=== PATIENT | female | born 1995 | race Caucasian/White ===

== ENCOUNTER 2023-09-13 19:59 | Inpatient (IN) | payer BC ==
[2023-09-13] MEDS ORDERED: Labetalol 100 MG/20 ML MDV ONE (21:50)
[2023-09-13] MEDS ORDERED: Magnesium Sulfate/Water 6 GM in Premix Bag 1 BAG IV SCH (22:00)
[2023-09-13] MEDS: Labetalol 100 MG/20 ML MDV IVPUSH ONE (22:04)
[2023-09-13] MEDS ORDERED: Calcium Gluconate 10% 1 GM/10 ML SDV IV PRN ×2 (22:14→23:05)
[2023-09-13] MEDS ORDERED: Sodium Chloride 0.9% 20 ML SDV IV PRN ×2 (22:14→23:05)
[2023-09-13] MEDS ORDERED: Sodium Chloride 0.9% 2.5 ML Syringe FLUSH PRN ×2 (22:14→23:05)
[2023-09-13] MEDS ORDERED: Sodium Chloride 0.9% 10 ML Syringe FLUSH PRN ×2 (22:14→23:05)
[2023-09-13] MEDS: Magnesium Sulfate/Water 6 GM in Premix Bag 1 BAG IV ONE (22:27)
[2023-09-13 22:29] LABS: HEMATOCRIT 39.7 % (37.0-47.0); HEMOGLOBIN 13.5 g/dL (12.0-16.0); MEAN CORPUSCULAR HEMOGLOBIN 30.6 pg (28.0-32.0); PLATELET COUNT,PLT 191 K/uL (150-400); RED BLOOD CELL COUNT 4.41 M/uL (4.10-5.30); WHITE BLOOD CELL COUNT,WBC 15.67 K/uL (3.9-11.3)
[2023-09-13] MEDS ORDERED: Terbutaline 1 MG/ML SDV SUBCUT PRN (22:31)
[2023-09-13] MEDS ORDERED: Misoprostol 25 MCG (1/4 of 100 MCG) Tab VAG PRN (22:31)
[2023-09-13] MEDS: Misoprostol 25 MCG (1/4 of 100 MCG) Tab VAG PRN (22:56)
[2023-09-13 22:59] LABS: A/G RATIO 0.6 (0.9-1.6); ALANINE AMINOTRANSFERASE,ALT 19 IU/L (14-63); ALBUMIN 2.6 g/dL (3.4-5.0); ALKALINE PHOSPHATASE 116 U/L (46-116); ASPARTATE AMNIOTRANSFERASE,AST 18 IU/L (15-37); BILIRUBIN TOTAL 0.2 mg/dL (0.2-1.0); BLOOD UREA NITROGEN,BUN 8 mg/dL (7.0-18.0); CARBON DIOXIDE,CO2 24.4 mmol/L (21.0-32.0); CHLORIDE,CL 102 mmol/L (98-107); CREATININE 0.5 mg/dL (0.6-1.0); ESTIMATED GFR 130 mL/min (>60); GLUCOSE RANDOM 84 mg/dL (74-106); MAGNESIUM 1.4 mg/dL (1.8-2.4); POTASSIUM,K 3.6 mmol/L (3.5-5.1); PROTEIN TOTAL,TP 7.1 g/dL (6.4-8.2); SODIUM,NA 138 mmol/L (136-145); URIC ACID 4.3 mg/dL (2.6-7.2)
[2023-09-13] MEDS ORDERED: Methylergonovine 0.2 MG/1 ML Amp IM PRN (23:05)
[2023-09-13] MEDS ORDERED: Butorphanol 2 MG/ML SDV IVPUSH PRN (23:05)
[2023-09-13] MEDS ORDERED: Tranexamic Acid IN NACL,ISO-OS 1,000 MG in Premix Bag 1 BAG IV PRN (23:05)
[2023-09-13] MEDS ORDERED: Carboprost Tromethamine 250 MCG/1 mL Vial IM PRN (23:05)
[2023-09-13] MEDS ORDERED: Water For Irrigation,Sterile 1,000 ML Container IRR PRN (23:05)
[2023-09-13] MEDS ORDERED: Misoprostol 200 MCG Tab PO PRN (23:05)
[2023-09-13] MEDS ORDERED: Lidocaine 1% 50 ML MDV INJECT PRN (23:05)
[2023-09-13] MEDS ORDERED: Magnesium Sulfate/Water 20 GM/500 ML BAG IV SCH (23:15)
[2023-09-13] MEDS ORDERED: Oxytocin/0.9 % Sodium Chloride 30 UNIT/500 ML BAG IV SCH (23:15)
[2023-09-14] MEDS: Labetalol 100 MG/20 ML MDV IVPUSH ONE (01:31)
[2023-09-14] MEDS: Ondansetron 4 MG/2 ML SDV IVPUSH PRN (02:13)
[2023-09-14] MEDS: Oxytocin/0.9 % Sodium Chloride 30 UNIT/500 ML BAG IV SCH (04:15)
[2023-09-14] MEDS ORDERED: ePHEDrine 50 MG/ML SDV IVPUSH PRN ×2 (07:53)
[2023-09-14 08:23] LABS: APPEARANCE,URINE CLEAR; BILIRUBIN,URINE NEGATIVE (NEGATIVE); COLOR,URINE YELLOW; GLUCOSE,URINE NEGATIVE (NEGATIVE); KETONES,URINE 15 mg/dL (NEGATIVE); LEUKOCYTE ESTERASE,URINE NEGATIVE (NEGATIVE); NITRITE,URINE NEGATIVE (NEGATIVE); OCCULT BLOOD,URINE SMALL (NEGATIVE); PROTEIN,URINE NEGATIVE (NEGATIVE); UROBILINOGEN,URINE 0.2 EU/dL (<2.0)
[2023-09-14 08:32] LABS: BACTERIA,URINE NOT SEEN (NEGATIVE); EPITHELIAL CELLS,URINE RARE (NONE-FEW); WBC,URINE 0-1 (0-5/HPF)
[2023-09-14] MEDS: Magnesium Sulfate/Water 20 GM/500 ML BAG IV SCH (09:35)
[2023-09-14] MEDS: Ropivacaine HCl/PF 400 MG in Premix Bag 1 BAG EPIDUR SCH (11:22)
[2023-09-14] MEDS: Phenylephrine HCl In 0.9% NaCl 1 MG/10 ML Syringe IVPUSH PRN (11:30)
[2023-09-15] MEDS ORDERED: droPERidol 5 MG/2 ML SDV ONE (02:05)
[2023-09-15] MEDS ORDERED: ceFAZolin 2 GM Vial ONE (02:10)
[2023-09-15] MEDS ORDERED: Ropivacaine 0.5% 5 MG/ML 30 ML SDV ONE (02:12)
[2023-09-15] MEDS ORDERED: Oxytocin 10 Units/1 ML SDV ONE ×2 (02:12→02:52)
[2023-09-15] MEDS ORDERED: Phenylephrine HCl In 0.9% NaCl 1 MG/10 ML Syringe ONE ×2 (02:12→02:33)
[2023-09-15] MEDS ORDERED: Dexamethasone 4 MG/ML 5 ML MDV ONE (02:12)
[2023-09-15] MEDS ORDERED: Azithromycin 500 MG Vial ONE (02:12)
[2023-09-15] MEDS ORDERED: Ondansetron 4 MG/2 ML SDV ONE (02:12)
[2023-09-15] MEDS ORDERED: Tranexamic Acid 1,000 MG/10 ML Vial ONE (02:12)
[2023-09-15] MEDS ORDERED: Water For Injection, Sterile 20 ML ONE (02:13)
[2023-09-15] MEDS ORDERED: dexmedeTOMIDine HCl 200 MCG/2 ML SDV ONE (02:13)
[2023-09-15] MEDS ORDERED: Morphine PF 10 MG/10 ML SDV ONE (02:33)
[2023-09-15] MEDS ORDERED: fentaNYL 100 MCG/2 ML SDV ONE ×2 (02:59→03:31)
[2023-09-15] MEDS ORDERED: droPERidol 5 MG/2 ML SDV IVPUSH PRN (03:10)
[2023-09-15] MEDS ORDERED: Metoclopramide 10 MG/2 ML SDV IVPUSH PRN (03:10)
[2023-09-15] MEDS ORDERED: Albuterol 0.083% 2.5 MG/3 ML Neb Soln NEB PRN (03:10)
[2023-09-15] MEDS ORDERED: Ondansetron 4 MG/2 ML SDV IVPUSH PRN (03:10)
[2023-09-15] MEDS ORDERED: fentaNYL 50 MCG/ML SDV IVPUSH PRN (03:10)
[2023-09-15] MEDS ORDERED: Morphine 2 MG/ML SYRINGE IVPUSH PRN (03:10)
[2023-09-15] MEDS ORDERED: ePHEDrine 50 MG/ML SDV IVPUSH PRN (03:10)
[2023-09-15] MEDS ORDERED: HYDROmorphone 1 MG/ML Syringe IVPUSH PRN (03:10)
[2023-09-15] MEDS ORDERED: Naloxone 0.4 MG/ML SDV IVPUSH PRN (03:10)
[2023-09-15] MEDS ORDERED: Sodium Chloride 0.9% 10 ML Syringe FLUSH PRN ×2 (04:26→08:16)
[2023-09-15] MEDS ORDERED: oxyCODONE 5 MG Tab PO PRN ×2 (04:26)
[2023-09-15] MEDS ORDERED: Sodium Chloride 0.9% 2.5 ML Syringe FLUSH PRN ×2 (04:26→08:16)
[2023-09-15] MEDS: Acetaminophen 1,000 MG in Premix Bag 1 BAG IV SCH (04:48)
[2023-09-15 05:23] LABS: PH,UMBILICAL ARTERIAL 7.22 (7.18-7.38); PH,UMBILICAL VENOUS 7.247 (7.25-7.45)
[2023-09-15] MEDS: Ketorolac 30 MG/ML SDV IVPUSH SCH (05:59)
[2023-09-15] MEDS: Bupivacaine 0.5% 30 ML SDV ONE (07:05)
[2023-09-15] MEDS: dexmedeTOMIDine HCl 200 MCG/2 ML SDV ONE (07:05)
[2023-09-15] MEDS: fentaNYL 100 MCG/2 ML SDV ONE (07:05)
[2023-09-15] MEDS: metroNIDAZOLE 250 MG Tab PO SCH (07:05)
[2023-09-15] MEDS: Acetaminophen 500 MG Tab PO SCH (07:06)
[2023-09-15 07:24] LABS: HEMATOCRIT 31.1 % (37.0-47.0); HEMOGLOBIN 10.6 g/dL (12.0-16.0); MEAN CORPUSCULAR HEMOGLOBIN 30.7 pg (28.0-32.0); MEAN CORPUSCULAR HGB CONC 34.1 g/dL (32.0-36.0); MEAN CORPUSCULAR VOLUME 90.1 fL (83.0-99.0); MEAN PLATELET VOLUME 13.7 fL (9.4-12.3); PLATELET COUNT,PLT 209 K/uL (150-400); RED BLOOD CELL COUNT 3.45 M/uL (4.10-5.30)
[2023-09-15 07:37] LABS: WHITE BLOOD CELL COUNT,WBC 35.32 K/uL (3.9-11.3)
[2023-09-15] MEDS: Cephalexin 500 MG Cap PO SCH (07:43)
[2023-09-15 07:55] LABS: BAND ABSOLUTE MAN 1.77; BAND PERCENT MAN 5 %; LYMPHOCYTES ABSOLUTE MAN 1.06 K/uL (1.00-4.80); LYMPHOCYTES PERCENT MAN 3 % (24-44); SEG NEUTROPHILS ABSOLUTE MAN 31.79 K/uL (1.80-7.70); SEG NEUTROPHILS PERCENT MAN 90 % (41-71)
[2023-09-15 07:56] LABS: MONOCYTES ABSOLUTE MAN 0.71 K/uL (0.00-0.80); MONOCYTES PERCENT MAN 2 % (0-8)
[2023-09-15] MEDS: Magnesium Sulfate/Water 20 GM/500 ML BAG IV SCH (08:00)
[2023-09-15] MEDS: Lactated Ringers 1,000 ML IV SCH (08:00)
[2023-09-15] MEDS ORDERED: Sodium Chloride 0.9% 20 ML SDV IV PRN (08:16)
[2023-09-15] MEDS ORDERED: Calcium Gluconate 10% 1 GM/10 ML SDV IV PRN (08:16)
[2023-09-15] MEDS: Docusate Sodium 100 MG Cap PO SCH (09:10)
[2023-09-15 23:02] LABS: URINE PROTEIN 10 mg/dL (1-14)
[2023-09-16] MEDS: Ibuprofen 800 MG Tab PO SCH (04:38)
== END 2023-09-17 10:40 | disposition home or self-care (01) | DRG 540 ==
LOC: MW.OB 19:59 → MW.OBCHECK 19:59 → MW.OB 09-14 03:38 → OBSVTOIN 09-15 02:55 → MW.OB 09-15 10:49
PROVIDERS: ADMIT Obstetrics & Gynecology; ATTEND Obstetrics & Gynecology
PROC: 3E0P7VZ Introduction of Hormone into Female Reproductive, Via Natural or Artificial Opening (ICD-10-PCS; 2023-09-15)
PROC: 10H07YZ Insertion of Other Device into Products of Conception, Via Natural or Artificial Opening (ICD-10-PCS; 2023-09-15)
PROC: 10D00Z1 Extraction of Products of Conception, Low, Open Approach (ICD-10-PCS; principal; 2023-09-15 02:30)
DX: O14.94 Unspecified pre-eclampsia, complicating childbirth (principal); O34.211 Maternal care for low transverse scar from previous cesarean delivery; O99.214 Obesity complicating childbirth; Z37.0 Single live birth; Z3A.38 38 weeks gestation of pregnancy; O13.4 Gestational [pregnancy-induced] hypertension without significant proteinuria, complicating childbirth; O62.1 Secondary uterine inertia
CPT/HCPCS: 01967; 01968; 36415; 51702; 59025; 64488; 80053; 81001; 82803; 83735; 84112; 84550; 85025; 85027; 86592; 86850; 86900; 86901; A9270-GY; J0131; J0456; J0665; J0690; J1100; J1790; J1885; J1921; J2274; J2371; J2405; J2590; J2795; J3010; J3475; J3490; J7120